=== PATIENT | female | born 1945 | race Caucasian/White ===

== ENCOUNTER 2017-10-19 11:00 | Outpatient (CLI) | payer OTHER ==
--- NOTE | 2017-10-19 12:07 | MAMMO ---
EXAM: Bilateral digital screening mammogram (2-D and 3-D) History: Screening Comparison: Bilateral mammogram 01/20/2016 Findings: MLO and CC views of bilateral breasts demonstrate scattered fibroglandular breast parenchy ma. Stable benign calcification within the right breast. There are no dominant masses, no suspiciou s microcalcifications and no architectural distortions. CAD was reviewed by the radiologist. Tomosy nthesis was performed. Impression: Benign stable mammogram. Recommend followup routine screening mammography in 1 year. BIRADS 2
== END 2017-10-19 11:01 | disposition home or self-care (01) ==
LOC: RAD 11:00
PROVIDERS: ATTEND Nurse Practitioner
DX: Z12.31 Encounter for screening mammogram for malignant neoplasm of breast (principal)
CPT/HCPCS: 77067

== ENCOUNTER 2018-10-10 08:45 | Outpatient (CLI) ==
--- NOTE | 2018-10-10 11:57 | DEXA ---
EXAM: Bone Densitometry DEXA HISTORY: Menopause COMPARISON: None FINDINGS: DEXA scan of the lumbar spine was performed. Quality of the study is good. Bone mineral density is 1.126 grams per square centimeter. T-score is negative 0.5. Z-score is 0.7. DEXA scan right and left hip was performed. Quality of the study is good. Bone mineral density medi an is 0.809 grams per square centimeter. T-score is negative 1.6. Z-score is negative 0.4. Bone min eral density of the femoral neck mean is 0.767 with a T score of negative 2.0 and a Z score of negati ve 0.5. IMPRESSION: 1. Lumbar spine: Normal bone marrow density. 2. Right and left hip: Osteopenia 3. Right and left femoral neck: Osteopenia 4. 10 year risk for major osteoporotic fracture is 12.3% and for hip fracture is 2.7%. Reference Values according to World Health Organization criteria: T score greater than -1 is normal T score -1 to -2.5 is osteopenia T score less than -2.5 is osteoporosis.
--- NOTE | 2018-10-11 10:11 | MAMMO ---
EXAM: Digital screening mammogram with tomosynthesis HISTORY: Screening COMPARISON: 10/19/2017 FINDINGS: Digital MLO and CC views of the right and left breast were performed. Tomosynthesis was performed. Computer aided detection utilized. There are scattered fibroglandular densities. Stable benign calcifications right breast. There is no evidence for mass, asymmetry, distortion, or suspic ious calcifications in either breast. IMPRESSION: 1. No evidence of malignancy in the right or left breast. 2. Annual screening mammogram is recommended in one year. BIRADS category 2, benign
== END 2018-10-10 08:46 | disposition home or self-care (01) ==
LOC: RAD 08:45
PROVIDERS: ATTEND Family Medicine
DX: Z12.31 Encounter for screening mammogram for malignant neoplasm of breast (principal); Z78.0 Asymptomatic menopausal state; M85.80 Other specified disorders of bone density and structure, unspecified site; Z91.89 Other specified personal risk factors, not elsewhere classified